=== PATIENT | male | born 1965 | race African-American/Black ===

== ENCOUNTER 2021-06-13 15:33 | Emergency (ER) | payer OTHER ==
[~2021-06-13] VITALS: Ht 193 cm; Wt 108.0 kg
[2021-06-13 17:38] VITALS: BP 152/76
== END 2021-06-13 17:41 | disposition home or self-care (01) ==
LOC: ER 15:33
DX: M25.551 Pain in right hip (principal); M54.50 Low back pain, unspecified; Y93.01 Activity, walking, marching and hiking; Y92.89 Other specified places as the place of occurrence of the external cause; Y99.8 Other external cause status
CPT/HCPCS: 72100; 73130; 73502; 99284